=== PATIENT | female | born 1960 | race Caucasian/White ===

== ENCOUNTER → 2017-08-14 | Outpatient (CLI) | payer OTHER | LOC: FIMAGING 07:39 | PROVIDERS: ATTEND Radiology Diagnostic Radiology | DX: I83.813 Varicose veins of bilateral lower extremities with pain (principal) ==

== ENCOUNTER → 2017-09-01 | Day surgery (SDC) | payer SELFPAY ==
[~2017-09-01] MED LIST: SODIUM TETRADECYL SULFATE 3% 2 ML VIAL IV ONE
== END | disposition home or self-care (01) ==
LOC: FIMAGING 10:29
PROVIDERS: ATTEND Radiology Diagnostic Radiology
PROC: 3E033GC Introduction of Other Therapeutic Substance into Peripheral Vein, Percutaneous Approach (ICD-10-PCS; principal; 2017-09-01)
DX: I83.813 Varicose veins of bilateral lower extremities with pain (principal)